=== PATIENT | male | born 2000 | race Caucasian/White ===

== ENCOUNTER → 2020-08-12 | Outpatient (CLI) | payer OTHER ==
[~2020-08-12] MED LIST: ABILIFY 2 MG2 M1 PO; WELLBUTRIN SR150 M1 PO
== END ==
LOC: LAB 13:17
PROVIDERS: ATTEND Surgery
DX: Z01.812 Encounter for preprocedural laboratory examination (principal); Z20.822 Contact with and (suspected) exposure to COVID-19

== ENCOUNTER 2020-08-15 07:50 | Day surgery (SDC) | payer OTHER ==
[~2020-08-15] VITALS: Ht 188 cm; Wt 73.9 kg
[2020-08-15 09:11] VITALS: BP 111/68
[2020-08-15] MEDS ORDERED: HYDROCODON-ACE1 EAC7 PO (12:03)
[2020-08-15 12:18] VITALS: BP 111/68
[2020-08-16] MEDS ORDERED: FLOMAX0.4 MG PO (14:10)
--- NOTE | 2020-08-17 12:10 | O ---
[facility] [place] [address] OPERATIVE REPORT Name: ELLE RAHMAN Room #: DEP [facility]..#: [id number] Admission: 08/15/20 Attend Phys: Larry Kc MD Discharge: 08/15/20 Date of : 89 Report #: [id number] THIS REPORT FOR: cc: Som Fung Steven F. DO Chu, Peter Y. MD ~ DATE OF SERVICE: 08/15/2020 PREOPERATIVE DIAGNOSIS: Right inguinal hernia. POSTOPERATIVE DIAGNOSIS: Right direct and indirect inguinal hernia. ANESTHESIA: General anesthesia. PROCEDURE PERFORMED: Laparoscopic properitoneal repair of right inguinal hernia with mesh. COMPLICATIONS: None. ESTIMATED BLOOD LOSS: 5 mL. PROCEDURE NOTE: With the patient's abdomen prepped and draped in sterile fashion, Agee catheter was placed before surgery. IV antibiotic was administered. Timeout was performed. A 0.25% Marcaine was used to anesthetize the skin adjacent to the umbilicus, 2 cm incision was made adjacent to the umbilicus on the right side transversely. The anterior rectus fascia was incised transversely. The muscle was split. Space between the muscle and the posterior fascia was dissected bluntly with fingertip. Origin balloon trocar was placed in the same space. Balloon was inflated. CO2 was placed. Part of the properitoneal space was visualized. A 5 mm trocar was placed into the properitoneal space under visualization. With cautery and blunt dissection, the rest of the properitoneal space was opened up. No direct defect. The pubic bones were isolated. The balloon and the catheter were visualized and the bladder was visualized. Dissecting the inferior epigastric vessel was identified. Dissection of the wall lateral to it was performed. The patient had an obvious indirect hernia sac over the cord structure. The hernia sac was somewhat adhesed and scarred into the sac cord, particularly the distal part. The sac was free from the underlying cord structure, vas was visualized. The sac was free from the vas. A very distal part of the sac was again pretty scarred and did not reduce very well. I went ahead and divided the hernia sac, transected the hernia sac with cautery. The more proximal part of the hernia sac was then ligated with an 0 PDS Endoloop. Hemostasis checked and obtained. The hernia sac was further freed from the cord, more proximally. A large right-sided 3DMax lightweight mesh was placed. This was opened up in the properitoneal space. The mesh was tacked lateral to the internal ring to the [facility] [address] [place] [address] OPERATIVE REPORT Name: ELLE RAHMAN Room #: DEP [facility].#: [id number] Admission: 08/15/20 Attend Phys: Larry Kc MD Discharge: 08/15/20 Date of : 89 Report #: [id number] abdominal wall. Inferomedially, the mesh was tacked to the Gary's ligament over the pubic bone. Superomedially, it was tacked to the rectus muscle. The mesh seated well. The end of the hernia sac was medial to the mesh from the internal ring. CO2 was then evacuated. Trocars were removed. There was some pneumoperitoneum. The posterior fascia at the umbilicus side was grasped with hemostat, opened. Peritoneum was opened, releasing the air. The posterior fascia defect was closed with [id number] 0 Vicryl. The anterior fascia was closed with [id number] 0 Vicryl x 2. Skin was irrigated, closed with 5-0 PDS. Steri-Strip, Band-Aids applied. The patient tolerated the procedure well. <ELECTRONICALLY SIGNED> By: Larry Kc MD 08/17/20 1210 1420 1515 Larry Kc MD /nt
== END 2020-08-15 13:00 | disposition home or self-care (01) ==
LOC: TBA 07:50 → OR 07:50
PROVIDERS: ATTEND Surgery
DX: K40.90 Unilateral inguinal hernia, without obstruction or gangrene, not specified as recurrent (principal); Z87.440 Personal history of urinary (tract) infections; Z79.899 Other long term (current) drug therapy; Z98.890 Other specified postprocedural states
CPT/HCPCS: 50010; 50101; 50411; 50455; 50507; 50555; 50848; 51297; 52265; 53065; 53307; 56462; 56525; 56526; 62110; 62900; 70005

== ENCOUNTER 2020-08-16 12:11 | Emergency (ER) | payer OTHER ==
[~2020-08-16] VITALS: Ht 188 cm; Wt 72.6 kg
[~2020-08-16 12:11] MED LIST changes: +HYDROCODON-ACE1 EAC7 PO
[2020-08-16 14:05] LABS: URINE BILIRUBIN NEGATIVE (Negative); URINE BLOOD NEGATIVE (Negative); URINE CLARITY CLEAR; URINE COLOR YELLOW; URINE GLUCOSE-RANDOM* NEGATIVE (Negative); URINE KETONES NEGATIVE (Negative); URINE LEUKOCYTES-REFLEX NEGATIVE (Negative); URINE NITRITE-REFLEX NEGATIVE (Negative); URINE PROTEIN (DIPSTICK) NEGATIVE (Negative); URINE SPECIFIC GRAVITY 1.015 (1.005-1.035); URINE UROBILINOGEN 0.2 E.U./dl (0.2-1.0)
[2020-08-16] MEDS ORDERED: FLOMAX0.4 MG PO (14:10)
[2020-08-16 15:00] VITALS: BP 110/76
== END 2020-08-16 15:38 | disposition home or self-care (01) ==
LOC: ER 12:11
PROVIDERS: Nurse Practitioner
DX: R33.9 Retention of urine, unspecified (principal); Z79.899 Other long term (current) drug therapy